=== PATIENT | male | born 1950 | race American Indian/Alaskan Native ===

== ENCOUNTER 2017-04-01 06:13 | Day surgery (SDC) | payer MEDICARE ==
[2017-04-01] MEDS ORDERED: Midazolam 2 MG/2 ML VIAL ONE (07:34)
[2017-04-01] MEDS ORDERED: Propofol 10 mg/ml Inj (20 ML) ONE (07:35)
[2017-04-01 07:36] VITALS: BMI 42.0
--- NOTE | 2017-04-01 07:36 | CP.SDSHP ---
Same Day Surgery H & P - History Proposed Procedure: COLONSCOPY Pre-Op Diagnosis: SEE NOTES - Previous Medical/Surgical History Cardiac: Hypertension Endocrine/Metabolic: Diabetes, Other Pain: 2.Mild Pain - Allergies Allergies: Allergies No Known Allergies Allergy (Verified 04/01/17 06:34) - Physical Exam General Appearance: N Vital Signs: Vital Signs 04/01/17 04/01/17 06:45 07:13 Temperature 97.2 F L 97.2 F L Pulse Rate 65 65 Respiratory 19 19 Rate Blood Pressure 158/81 H 158/81 H O2 Sat by Pulse 97 97 Oximetry Mental Status: Alert & Oriented x3 Neuro: WNL Heart: Other Lungs: WNL GI: Other - {Optional Preform as Required} Breast: WNL Abdomen: Other Rectal: Other Integument: WNL : WNL Ortho: WNL ENT: WNL - Impression Pt. Evaluated Today:Candidate for Anesthesia & Procedure: Yes - Date & Time Time: 07:35 Short Stay Discharge - Short Stay Discharge Admitting Diagnosis/Reason for Visit: COLON SCREENING Disposition: HOME/ ROUTINE
[2017-04-01] MEDS ORDERED: Belladonna-Phenobarbital PO STA (07:46)
[2017-04-01 08:19] VITALS: O2SAT 100
[2017-04-01] MEDS ORDERED: Belladonna-Phenobarbital PO ONE (08:30)
[2017-04-01 09:46] VITALS: BP 119/62; PULSE 66; RESP 16; TEMP 97.7
== END 2017-04-01 09:40 | disposition home or self-care (01) ==
LOC: C.ENDO 06:13
PROVIDERS: ATTEND Specialist
DX: K52.9 Noninfective gastroenteritis and colitis, unspecified (principal); K64.8 Other hemorrhoids
CPT/HCPCS: 45380; 82948; 88305; J2250; J2704